=== PATIENT | female | born 1995 | race Caucasian/White ===

== ENCOUNTER 2016-12-02 12:35 | Emergency (ER) | payer BC ==
[~2016-12-02] VITALS: Ht 157.5 cm; Wt 47.2 kg
[2016-12-02] MEDS ORDERED: IV NS 0.9% 1,000 ML BAG IV ONE (13:00)
[2016-12-02] MEDS ORDERED: MORPHINE SULFATE INJ 2 MG/ML DISP.SYRIN IV ONE (13:00)
[2016-12-02] MEDS ORDERED: ONDANSETRON HCL/PF 4 MG/2 ML VIAL IVP ONE (13:00)
[2016-12-02] MEDS ORDERED: IV NS 0.9% 1,000 ML ONE (13:01)
[2016-12-02] MEDS ORDERED: MORPHINE SULFATE INJ 2 MG/ML DISP.SYRIN ONE (13:01)
[2016-12-02] MEDS ORDERED: ONDANSETRON HCL/PF 4 MG/2 ML VIAL ONE (13:01)
[2016-12-02] MEDS ORDERED: IV SET PRIMARY 1 EA INFUS.SET MC ONE (13:01)
[2016-12-02 13:13] LABS: BASOPHILS % (AUTO) 0.3 % (0.0-2.0); DIFF TOTAL % 100 %; EOSINOPHILS # (AUTO) 0.2 /CMM (0.0-0.7); EOSINOPHILS % (AUTO) 2.5 % (0.0-6.0); HEMATOCRIT 46 % (33-45); HEMOGLOBIN 15.6 g/dL (11.5-14.8); LYMPHOCYTES # (AUTO) 2.2 /CMM (0.8-4.8); LYMPHOCYTES % (AUTO) 33.2 % (20.0-44.0); MEAN CORPUSCULAR HEMOGLOBIN 31 PG (26.0-33.0); MEAN CORPUSCULAR HGB CONC 34 g/dl (31.0-36.0); MEAN CORPUSCULAR VOLUME 91 fL (82-100); MONOCYTES # (AUTO) 0.6 /CMM (0.1-1.30); MONOCYTES % (AUTO) 9.3 % (2.0-12.0); NEUTROPHILS # (AUTO) 3.7 /CMM (1.8-8.9); NEUTROPHILS % (AUTO) 54.7 % (43.0-81.0); PLATELET COUNT (AUTO) 244 /CMM (150-450); WHITE BLOOD COUNT (AUTO) 6.7 K/uL (4.3-11.0)
[2016-12-02 13:21] LABS: CALCIUM, SERUM 8.8 mg/dL (8.5-10.1)
[2016-12-02 13:47] LABS: ADD UA MICROSCOPIC NO; KETONES,URINE Negative (NEGATIVE); LEUKOCYTE ESTERASE ,URINE Negative (NEGATIVE)
[2016-12-02 14:05] VITALS: BP 128/71
== END 2016-12-02 14:10 | disposition home or self-care (01) ==
LOC: ER 12:48
DX: N83.01 Follicular cyst of right ovary (principal); N83.201 Unspecified ovarian cyst, right side
CPT/HCPCS: 36415; 76856; 80048; 81001; 84702; 85025; 96361; 96374; 96375; 99285; A4606; J2270; J2405; J7030; Z7610; 81000-TC

== ENCOUNTER 2017-07-08 10:39 | Emergency (ER) | payer BC ==
[~2017-07-08] VITALS: Ht 157.5 cm; Wt 45.4 kg
--- NOTE | 2017-07-08 11:10 | NUR ---
INTERMITTENT R SIDED PELVIC PAIN X 2 MONTHS, WORSENING 2 DAYS [employer] C/O DISCHARGE, DENIES HEMATUIRA OR DYSURIA, NAD NOTED, VSS, WAITING FOR MD CARLTON.
--- NOTE | 2017-07-08 11:20 | NUR ---
URINE SAMPLE SENT TO LAB
[2017-07-08 11:21] LABS: APPEARANCE,URINE Slightly Cloudy (CLEAR); BILIRUBIN,URINE Negative (NEGATIVE); BLOOD, URINE Negative Ery/uL (NEGATIVE); COLOR,URINE Yellow (YELLOW); KETONES,URINE Negative (NEGATIVE); LEUKOCYTE ESTERASE ,URINE Small (NEGATIVE); NITRITE, URINE Negative (NEGATIVE); PH,URINE 5.5 (5.0-8.0); PROTEIN,URINE Negative (NEGATIVE); UGLUCOSE Negative (NEGATIVE); UROBILINOGEN,URINE 0.2 EU/dL (0.2)
[2017-07-08 11:31] LABS: BACTERIA,URINE Moderate /HPF (None Seen); RBC,URINE 0-3 /HPF (0-2); SQUAMOUS EPITHELIAL CELL,UR Few /HPF (None Seen)
[2017-07-08] MEDS ORDERED: AZITHROMYCIN 250 MG TABLET ONE ×2 (11:55→12:40)
[2017-07-08] MEDS ORDERED: CEFTRIAXONE 1 G VIAL ONE (11:55)
[2017-07-08] MEDS ORDERED: CEFTRIAXONE 1 G VIAL IM ONE (12:00)
[2017-07-08] MEDS ORDERED: AZITHROMYCIN 250 MG TABLET PO ONE (12:00)
[2017-07-08 14:24] VITALS: BP 128/70
== END 2017-07-08 14:25 | disposition home or self-care (01) ==
LOC: ER 10:41
DX: N73.9 Female pelvic inflammatory disease, unspecified (principal); N39.0 Urinary tract infection, site not specified
CPT/HCPCS: 76856; 81001; 84703; 87086; 87110; 87210; 87491; 87591; 96372; 99285; A4606; J0696; Z7610; 81000-TC